=== PATIENT | female | born 1935 | race Caucasian/White ===

== ENCOUNTER 2016-09-28 10:50 | Emergency (ER) | payer MEDICARE ==
[~2016-09-28] VITALS: Ht 149.9 cm; Wt 75.0 kg
[~2016-09-28 10:50] MED LIST: ASPI81 PO; CARV3.125 PO; ISOS5 PO; LORT5TAB PO; OYST500T77 PO; PRIL10CA PO; TAB-TAB PO; TRAZ50TA78 PO
[2016-09-28 10:52] VITALS: BP 137/84; PULSE 87; RESP 17; TEMP 98.2; O2SAT 96
[2016-09-28] MEDS ORDERED: ASPI1TAB69 PO (11:16)
[2016-09-28] MEDS ORDERED: ISOS10TA PO (11:16)
[2016-09-28] MEDS ORDERED: SIMV40TA PO (11:16)
[2016-09-28] MEDS ORDERED: CARV3.125 PO (11:16)
--- NOTE | 2016-09-28 11:32 | PD ---
HPI Chief Complaint: Edema Time Seen by Provider: 11:32 Travel History International Travel<30 days: No Contact w/Intl Traveler<30days: No Traveled to known affect area: No History of Present Illness HPI 80-year-old female with history of HLD, HTN, CAD status post stenting presents to the ED for evaluation of 3 day history of edema in bilateral legs. She also states that she has experienced several episodes of feeling "not right". She describes this as dizziness and weakness. Also complains of low back pain, onset a few days after exercising as well as decreased urinary stream. Denies headache, fever, chills, chest pain, cough, palpitations, numbness, tingling, facial droop, difficulties with word finding, limitations to range of motion. Denies abdominal pain, nausea, vomiting, dysuria, hematuria, incontinence, saddle anesthesia, changes in bowel habits. PFSH Past Medical History Arthritis: Yes Asthma: No Blood Disorders: No Heart Rhythm Problems: No Cancer: Yes (skin) Cardiovascular Problems: Yes (STENTS X2) High Cholesterol: Yes Chest Pain: No Congestive Heart Failure: No COPD: No Coronary Artery Disease: Yes Diminished Hearing: No Endocrine: No Glaucoma: Yes Genitourinary: No Hypertension: Yes Immune Disorder: No Musculoskeletal: Yes Neurologic: No Psychiatric: No Reproductive: No Respiratory: Yes Myocardial Infarction: No Sleep Apnea: No Tetanus Vaccination: Unknown ?: Not Past Surgical History Abdominal Surgery: Yes (HERNIA) AICD: No Arteriovenous Shunt: No Body Medical Devices: CARDIAC STENT Cardiac Surgery: Yes (CARDIAC CATH STENT) Coronary Stent: Yes Ear Surgery: No Endocrine Surgery: No Eye Surgery: No Genitourinary Surgery: No Gynecologic Surgery: No Insulin Pump: No Joint Replacement: Yes (bilat ) Oral Surgery: No Pacemaker: No Thoracic Surgery: No Social History Alcohol Use: No Tobacco Use: No Substance Use: No Allergies-Medications (Allergen,Severity, Reaction): Coded Allergies: Bacitracin (Verified Allergy, Severe, REDNESS, 09/28/16) Reported Meds & Prescriptions Reported Meds & Active Scripts Active Macrobid (Nitrofurantoin Monoh/Nitrofur Macro) 100 Mg Cap 100 Mg PO BID 5 Days Reported Coreg (Carvedilol) 3.125 Mg Tab 3.125 Mg PO DAILY Simvastatin 40 Mg Tab 40 Mg PO HS Isosorbide Dinitrate 10 Mg Tab 5 Mg PO BID Aspirin 81 Mg Tabdr 81 Mg PO DAILY Review of Systems Except as stated in HPI: all other systems reviewed are Neg Physical Exam Narrative GENERAL: Well-nourished, well-developed elderly white female in no acute distress. SKIN: Warm and dry. HEAD: Normocephalic. EYES: No scleral icterus. No injection or drainage. PERRLA. EOMI. NECK: Supple, trachea midline. No JVD or lymphadenopathy. CARDIOVASCULAR: Regular rate and rhythm without murmurs, gallops, or rubs. 2+ DP and radial pulses bilaterally. RESPIRATORY: Breath sounds clear and equal bilaterally. No accessory muscle use. GASTROINTESTINAL: Abdomen soft, non-tender, nondistended. Active bowel sounds. MUSCULOSKELETAL: No cyanosis. 2+ pitting edema BLE. Patient retains full, active, painless range of motion of the lower extremities. Homans sign negative bilaterally. NEUROLOGICAL: Awake and alert. Cranial nerves II through XII intact. Motor and sensory grossly within normal limits. Five out of 5 muscle strength in all muscle groups. Normal speech. BACK: Nontender without obvious deformity. No CVA tenderness. No midline tenderness. No tenderness to palpation of the lumbar musculature. Straight leg raise negative bilaterally. Data Data Last Documented VS Vital Signs Date Time Temp Pulse Resp B/P Pulse Ox O2 Delivery O2 Flow Rate FiO2 09/28/16 14:01 74 20 130/69 99 09/28/16 10:52 98.2 Orders Complete Blood Count With Diff (09/28/16 11:45) Comprehensive Metabolic Panel (09/28/16 11:45) B-Type Natriuretic Peptide (09/28/16 11:45) Act Partial Throm Time (Ptt) (09/28/16 11:45) Prothrombin Time / Inr (Pt) (09/28/16 11:45) Ckmb (Isoenzyme) Profile (09/28/16 11:45) Troponin I (09/28/16 11:45) Urinalysis - C+S If Indicated (09/28/16 11:45) Iv Access Insert/Monitor (09/28/16 11:45) Electrocardiogram (09/28/16 11:45) Chest, Single Ap (09/28/16 11:45) Sodium Chloride 0.9% Flush (Ns Flush) (09/28/16 11:45) Urine Culture (09/28/16 13:00) Labs Laboratory Tests Test 09/28/16 09/28/16 12:10 13:00 White Blood Count 11.8 TH/MM3 Red Blood Count 3.98 MIL/MM3 Hemoglobin 11.9 GM/DL Hematocrit 35.3 % Mean Corpuscular Volume 88.7 FL Mean Corpuscular Hemoglobin 30.0 PG Mean Corpuscular Hemoglobin 33.8 % Concent Red Cell Distribution Width 14.7 % Platelet Count 197 TH/MM3 Mean Platelet Volume 7.3 FL Neutrophils (%) (Auto) 62.0 % Lymphocytes (%) (Auto) 27.5 % Monocytes (%) (Auto) 8.3 % Eosinophils (%) (Auto) 1.7 % Basophils (%) (Auto) 0.5 % Neutrophils # (Auto) 7.3 TH/MM3 Lymphocytes # (Auto) 3.2 TH/MM3 Monocytes # (Auto) 1.0 TH/MM3 Eosinophils # (Auto) 0.2 TH/MM3 Basophils # (Auto) 0.1 TH/MM3 CBC Comment DIFF FINAL Differential Comment Prothrombin Time 11.7 SEC Prothromb Time International 1.1 RATIO Ratio Activated Partial 23.5 SEC Thromboplast Time Sodium Level 136 MEQ/L Potassium Level 4.2 MEQ/L Chloride Level 102 MEQ/L Carbon Dioxide Level 25.9 MEQ/L Anion Gap 8 MEQ/L Blood Urea Nitrogen 14 MG/DL Creatinine 0.80 MG/DL Estimat Glomerular Filtration 69 ML/MIN Rate Random Glucose 100 MG/DL Calcium Level 8.7 MG/DL Total Bilirubin 0.8 MG/DL Aspartate Amino Transf 24 U/L (AST/SGOT) Alanine Aminotransferase 46 U/L (ALT/SGPT) Alkaline Phosphatase 72 U/L Total Creatine Kinase 80 U/L Troponin I LESS THAN 0.02 NG/ML B-Type Natriuretic Peptide 52 PG/ML Total Protein 7.2 GM/DL Albumin 3.8 GM/DL Urine Color YELLOW Urine Turbidity HAZY Urine pH 5.0 Urine Specific Rector 1.020 Urine Protein NEG mg/dL Urine Glucose (UA) NEG mg/dL Urine Ketones NEG mg/dL Urine Occult Blood NEG Urine Nitrite NEG Urine Bilirubin NEG Urine Urobilinogen LESS THAN 2.0 MG/DL Urine Leukocyte Esterase LARGE Urine RBC 4 /hpf Urine WBC 90 /hpf Urine Squamous Epithelial 1 /hpf Cells Urine Mucus FEW /lpf Microscopic Urinalysis Comment CULTURE INDICATED MDM Medical Decision Making Medical Screen Exam Complete: Yes Emergency Medical Condition: Yes Medical Record Reviewed: Yes Interpretation(s) EKG rate 76, sinus rhythm. MD interval 183, QRS 80 ms, QTC 409 ms. Normal axis. No ischemic changes. Reviewed by Dr. Avitia. Differential Diagnosis Electrolyte abnormality versus ARF versus CHF versus dependent edema versus anemia versus UTI versus other Narrative Course 80-year-old female with history of HLD, HTN, CAD status post stenting presents to the ED for evaluation of 3 day history of edema in bilateral legs, low back pain, decreased urinary stream. And several episodes of momentary dizziness and weakness. Lasting less than 10 seconds, resolving spontaneously. Back pain onset after starting new exercise regimen. Denies headache, fever, chills , chest pain, palpitations, numbness, tingling, facial droop, difficulties with word finding, limitations to range of motion, abdominal pain, nausea, vomiting, dysuria, hematuria, incontinence, saddle anesthesia, changes in bowel habits. Vitals reviewed. Physical exam reveals a nontoxic-appearing white female in no acute distress. Chest is clear to auscultation bilaterally. Abdomen benign. No CVA tenderness. No midline tenderness of the back. 5/5 strength in bilateral lower extremities. No focal neural deficits. IV was established. CBC: WBC 11.8. Hemoglobin 11.9. CMP: Unremarkable INR: 1.1 EKG: Rate 76, sinus rhythm, normal intervals, normal axis, no ischemic changes. Cardiac enzymes: Negative Chest x-ray: No acute disease per radiology read. BNP: 52 UA: Hazy, large leukocyte esterase, 90 WBCs, culture pending. I discussed the patient, workup and plan with Dr. Hicks who agrees. This is urinary tract infection. Patient was prescribed Macrobid twice a day 5 days. I suspect the edema is dependent. When I discussed this with the patient and her friend didn't recall an episode of playing cards for multiple hours with their legs dangling from stools. Patient was encouraged to wear compression stockings, elevate the legs. She is instructed to follow-up with her primary care provider should her symptoms worsen or fail to resolve. She indicated understanding of these instructions, is amenable to plan of care. She is stable and discharged home. Diagnosis Primary Impression: Urinary tract infection Qualified Code: N39.0 - Urinary tract infection without hematuria, site unspecified Additional Impression: Bilateral lower extremity edema Referrals: Primary Care Physician Patient Instructions: General Instructions, Leg Edema (ED), Urinary Tract Infection in Women (ED) Additional Instructions: Rest, hydrate. Take all antibiotics as prescribed, even if your symptoms resolve. Compression stockings as discussed. Follow up with your primary care provider as discussed. Return to the ED for any urgent or emergent medical condition. Med/Other Pt SpecificInfo: Prescription(s) given Scripts Nitrofurantoin Monohydrate Macrocrystals (Macrobid)100 Mg [id number] Mg PO BID 5 Days Ref 0 Prov:Thor Hicks MD 09/28/16 Disposition: 01 DISCHARGE HOME Condition: Stable Trini Miranda Sep 28, 2016 11:32
[2016-09-28] MEDS ORDERED: SODIUM CHLORIDE 0.9% FLUSH 5 ML FLUSH IVF PRN (11:45)
[2016-09-28 12:21] LABS: AUTOMATED NEUTROPHIL # 7.3 TH/MM3 (1.8-7.7); BASOPHIL # 0.1 TH/MM3 (0-0.2); BASOPHIL % 0.5 % (0.0-2.0); EOSINOPHIL # 0.2 TH/MM3 (0-0.4); EOSINOPHIL % 1.7 % (0.0-4.0); HEMATOCRIT 35.3 % (35.0-46.0); HEMO FLAGS DIFF FINAL; LYMPH % 27.5 % (9.0-44.0); LYMPHOCYTE # 3.2 TH/MM3 (1.0-4.8); MEAN CELL VOLUME 88.7 FL (80.0-100.0); MEAN CORPUSCULAR HGB CONC 33.8 % (32.0-36.0); MONO % 8.3 % (0.0-8.0); PLATELET COUNT 197 TH/MM3 (150-450); RED BLOOD COUNT 3.98 MIL/MM3 (4.00-5.30); RED CELL DISTRIBUTION WIDTH 14.7 % (11.6-17.2); WHITE BLOOD COUNT 11.8 TH/MM3 (4.0-11.0)
[2016-09-28 12:27] LABS: APTT (PATIENT) 23.5 SEC (24.3-30.1); INTERNATIONAL NORMALIZED RATIO 1.1 RATIO; PROTHROMBIN TIME - PATIENT 11.7 SEC (9.8-11.6)
[2016-09-28 12:37] LABS: ANION GAP 8 MEQ/L (5-15); AST (GOT) 24 U/L (15-37); BICARBONATE 25.9 MEQ/L (21.0-32.0); BLOOD UREA NITROGEN 14 MG/DL (7-18); CHLORIDE 102 MEQ/L (98-107); GLOMERULAR FILTRATION RATE 69 ML/MIN (>89); POTASSIUM 4.2 MEQ/L (3.5-5.1); SODIUM (NA) 136 MEQ/L (136-145)
--- NOTE | 2016-09-28 12:37 | RADRPT ---
EXAM DATE/TIME: 09/28/2016 12:02 [facility] COMPARISON: No previous studies available for comparison. INDICATIONS : Short of breath, cough, palpitations MEDICAL HISTORY : None. SURGICAL HISTORY : None. ENCOUNTER: Initial ACUITY: 1 day PAIN SCORE: 0/10 LOCATION: Bilateral chest FINDINGS: A single view of the chest demonstrates the lungs to be symmetrically aerated without evidence of mas s, infiltrate or effusion. The cardiomediastinal contours are unremarkable. Osseous structures are intact. CONCLUSION: No acute disease. Tim Denton MD FACR on September 28, 2016 at 12:36 Board Certified Radiologist. This report was verified electronically.
[2016-09-28 12:42] LABS: ALKALINE PHOSPHATASE 72 U/L (45-117); ALT (GPT) 46 U/L (10-53); TOTAL BILIRUBIN ADULT 0.8 MG/DL (0.2-1.0)
[2016-09-28 12:45] LABS: CREATINE KINASE 80 U/L (26-192)
[2016-09-28 13:36] LABS: BLOOD, URINE NEG (NEG); COMMENT (UR) CULTURE INDICATED; CULTURE IF INDICATED CULTURE INDICATED; GLUCOSE,URINE NEG (NEG); KETONE, URINE NEG (NEG); MUCUS URINE FEW /lpf (OCC); NITRITE,URINE NEG (NEG); SQUAMOUS EPITHELIAL CELL URINE 1 /hpf (0-5); URINE COLOR YELLOW (YELLW/STRAW)
[2016-09-28 14:01] VITALS: BP 130/69
[2016-09-28] MEDS ORDERED: MACR100C2 PO (14:01)
--- NOTE | 2016-10-01 23:48 | EKG ---
Date Performed: 09/28/2016 Time Performed: 12:20:27 PTAGE: 80 years EKG: Sinus rhythm NORMAL ECG PREVIOUS TRACING : 12/04/2006 11.03 Compared to the previous tracing, rate has increased DOCTOR: Roel Leone Interpretating Date/Time 10/01/2016 23:46:22
== END 2016-09-28 14:16 | disposition home or self-care (01) ==
LOC: NETRI 10:50
DX: N39.0 Urinary tract infection, site not specified (principal); R60.0 Localized edema; I25.10 Atherosclerotic heart disease of native coronary artery without angina pectoris; Z95.5 Presence of coronary angioplasty implant and graft; I10 Essential (primary) hypertension; E78.00 Pure hypercholesterolemia, unspecified; B96.89 Other specified bacterial agents as the cause of diseases classified elsewhere
CPT/HCPCS: 71010; 80053; 81001; 82550; 83880; 84484; 85025; 85610; 85730; 87086; 93005

== ENCOUNTER 2016-10-15 11:48 | Inpatient (IN) | payer MEDICARE ==
[~2016-10-15] VITALS: Ht 149.9 cm; Wt 79.5 kg
[~2016-10-15 11:48] MED LIST changes: +ASPI1TAB69 PO; -ASPI81 PO; +ISOS10TA PO; -ISOS5 PO; -LORT5TAB PO; +MACR100C2 PO; -OYST500T77 PO; -PRIL10CA PO; +SIMV40TA PO; -TAB-TAB PO; -TRAZ50TA78 PO
[2016-10-15 11:53] VITALS: BP 153/67; PULSE 80; RESP 24; TEMP 97.9; O2SAT 93
--- NOTE | 2016-10-15 14:51 | PD ---
HPI Chief Complaint: Edema Time Seen by Provider: 14:51 Travel History International Travel<30 days: No Contact w/Intl Traveler<30days: No Traveled to known affect area: No History of Present Illness HPI 80-year-old female with a history of hyperlipidemia, hypertension, CAD with stents 2 presents to the emergency department for evaluation of lower extremity swelling. Patient states that for the past 2 weeks she's had worsening lower extremity swelling. States that over the past 3 days she's had shortness of breath on exertion. States that she is also having pain in her lower legs specifically in the left lower leg. She does admit to history of DVT in the left leg several years ago, is not on any anticoagulation. She denies any history of heart failure, is not on any diuretics. She denies any fever, chills, nausea, vomiting, chest pain, abdominal pain, cough or cold symptoms. She has had a history of venous reflux and had surgery on the right leg 2 years ago. No other complaints. PFSH Past Medical History Arthritis: Yes Asthma: No Blood Disorders: No Heart Rhythm Problems: No Cancer: Yes (skin) Cardiovascular Problems: Yes (STENTS X2) High Cholesterol: Yes Chest Pain: No Congestive Heart Failure: No COPD: No Coronary Artery Disease: Yes Diminished Hearing: No Endocrine: No Glaucoma: Yes Genitourinary: No Hypertension: Yes Immune Disorder: No Musculoskeletal: Yes Neurologic: No Psychiatric: No Reproductive: No Respiratory: Yes Myocardial Infarction: No Sleep Apnea: No Tetanus Vaccination: Unknown ?: Not Past Surgical History Abdominal Surgery: Yes (HERNIA) AICD: No Arteriovenous Shunt: No Body Medical Devices: CARDIAC STENT Cardiac Surgery: Yes (CARDIAC CATH STENT) Coronary Stent: Yes Ear Surgery: No Endocrine Surgery: No Eye Surgery: No Genitourinary Surgery: No Gynecologic Surgery: No Insulin Pump: No Joint Replacement: Yes (bilat ) Oral Surgery: No Pacemaker: No Thoracic Surgery: No Other Surgery: Yes Social History Alcohol Use: No Tobacco Use: No Substance Use: No Allergies-Medications (Allergen,Severity, Reaction): Coded Allergies: Bacitracin (Verified Allergy, Severe, REDNESS, 10/15/16) Reported Meds & Prescriptions Reported Meds & Active Scripts Active Reported Mupirocin Topical (Mupirocin) 2 % Oint 1 Applic TOPICAL BID Bactrim DS (Sulfamethoxazole-Trimethoprim) 800-160 Mg Tab 1 Tab PO BID Coreg (Carvedilol) 3.125 Mg Tab 3.125 Mg PO DAILY Simvastatin 40 Mg Tab 40 Mg PO HS Isosorbide Dinitrate 10 Mg Tab 5 Mg PO BID Aspirin 81 Mg Tabdr 81 Mg PO DAILY Review of Systems Except as stated in HPI: all other systems reviewed are Neg Physical Exam Narrative GENERAL: Well-nourished and well-developed pleasant patient in no acute distress who is nontoxic appearing. SKIN: Warm and dry. HEAD: Normocephalic and atraumatic. EYES: No injection, drainage, or hyphema noted. PERRLA. EOMI. ENT: No nasal drainage noted. Oropharynx is clear. NECK: Supple and the trachea is midline. CARDIOVASCULAR: Regular rate and rhythm. RESPIRATORY: Breath sounds are equal bilaterally with no accessory muscle use, wheezing, rhonchi, or crackles. GASTROINTESTINAL: Abdomen is soft, non-tender, and nondistended. MUSCULOSKELETAL: Bilateral lower extremity pitting edema 2+, worse in the left leg. Tenderness to palpation of left posterior calf. No obvious deformities, cyanosis, or ecchymosis is present throughout the upper and lower extremities. Patient has full range of motion without any signs of neurovascular compromise. NEUROLOGICAL: Awake, alert, and oriented. Normal speech and gait. Cranial nerves are grossly intact. Data Data Last Documented VS Vital Signs Date Time Temp Pulse Resp B/P Pulse Ox O2 Delivery O2 Flow Rate FiO2 10/15/16 16:33 80 20 99 Room Air 10/15/16 16:30 142/74 10/15/16 11:53 97.9 Orders Complete Blood Count With Diff (10/15/16 14:50) Comprehensive Metabolic Panel (10/15/16 14:50) B-Type Natriuretic Peptide (10/15/16 14:50) Act Partial Throm Time (Ptt) (10/15/16 14:50) Prothrombin Time / Inr (Pt) (10/15/16 14:50) Troponin I (10/15/16 14:50) Chest, Single Ap (10/15/16 14:50) Us Leg Venous Doppler Bilat (10/15/16 ) Ct Pulmonary Angiogram (10/15/16 16:43) Furosemide Inj (Lasix Inj) (10/15/16 16:45) Admit Order (Ed Use Only) (10/15/16 17:18) Labs Laboratory Tests Test 10/15/16 15:00 White Blood Count 12.1 TH/MM3 Red Blood Count 3.70 MIL/MM3 Hemoglobin 11.2 GM/DL Hematocrit 32.7 % Mean Corpuscular Volume 88.4 FL Mean Corpuscular Hemoglobin 30.2 PG Mean Corpuscular Hemoglobin 34.2 % Concent Red Cell Distribution Width 15.1 % Platelet Count 208 TH/MM3 Mean Platelet Volume 7.1 FL Neutrophils (%) (Auto) 68.3 % Lymphocytes (%) (Auto) 19.1 % Monocytes (%) (Auto) 10.4 % Eosinophils (%) (Auto) 1.6 % Basophils (%) (Auto) 0.6 % Neutrophils # (Auto) 8.2 TH/MM3 Lymphocytes # (Auto) 2.3 TH/MM3 Monocytes # (Auto) 1.3 TH/MM3 Eosinophils # (Auto) 0.2 TH/MM3 Basophils # (Auto) 0.1 TH/MM3 CBC Comment DIFF FINAL Differential Comment Prothrombin Time 13.3 SEC Prothromb Time International 1.2 RATIO Ratio Activated Partial 25.6 SEC Thromboplast Time Sodium Level 135 MEQ/L Potassium Level 4.1 MEQ/L Chloride Level 101 MEQ/L Carbon Dioxide Level 24.2 MEQ/L Anion Gap 10 MEQ/L Blood Urea Nitrogen 17 MG/DL Creatinine 0.80 MG/DL Estimat Glomerular Filtration 69 ML/MIN Rate Random Glucose 98 MG/DL Calcium Level 9.2 MG/DL Total Bilirubin 1.3 MG/DL Aspartate Amino Transf 29 U/L (AST/SGOT) Alanine Aminotransferase 32 U/L (ALT/SGPT) Alkaline Phosphatase 105 U/L Troponin I LESS THAN 0.02 NG/ML B-Type Natriuretic Peptide 62 PG/ML Total Protein 6.9 GM/DL Albumin 3.7 GM/DL [facility] Medical Decision Making Medical Screen Exam Complete: Yes Emergency Medical Condition: Yes Differential Diagnosis Dependent edema versus CHF exacerbation versus DVT Narrative Course 80-year-old female presents to the emergency department for evaluation of lower extremity edema with shortness of breath on exertion. Patient is afebrile. Her initial oxygen saturation is a little low at 93% on room air. The patient is in no acute distress and lungs are clear to auscultation. She does have edema to her lower extremities but this has been going on for a while, she is reporting that it acutely worsened over the past 2 weeks. Will do lab work to rule out CHF exacerbation. Ultrasound imaging is been ordered to rule out DVT. CBC shows a slightly elevated white blood cell count of 12.1. CMP is unremarkable. Troponin is less than 0.02. BNP is 62. Chest x-ray is negative for any Abnormalities. Initial laboratory and imaging studies have been ordered and the patient will be evaluated by another provider when a medical bed becomes available. The triage nurse is aware of the plan. The proposed plan of evaluation and treatment was discussed with the patient who verbalizes an understanding and agrees to proceed. Jaqueline Arenas Oct 15, 2016 14:51
[2016-10-15 15:17] LABS: AUTOMATED NEUTROPHIL # 8.2 TH/MM3 (1.8-7.7); BASOPHIL # 0.1 TH/MM3 (0-0.2); BASOPHIL % 0.6 % (0.0-2.0); EOSINOPHIL # 0.2 TH/MM3 (0-0.4); EOSINOPHIL % 1.6 % (0.0-4.0); HEMATOCRIT 32.7 % (35.0-46.0); HEMO FLAGS DIFF FINAL; LYMPH % 19.1 % (9.0-44.0); LYMPHOCYTE # 2.3 TH/MM3 (1.0-4.8); MEAN CELL VOLUME 88.4 FL (80.0-100.0); MEAN CORPUSCULAR HEMOGLOBIN 30.2 PG (27.0-34.0); MEAN CORPUSCULAR HGB CONC 34.2 % (32.0-36.0); MONO % 10.4 % (0.0-8.0); NEUT % 68.3 % (16.0-70.0); PLATELET COUNT 208 TH/MM3 (150-450); RED CELL DISTRIBUTION WIDTH 15.1 % (11.6-17.2); WHITE BLOOD COUNT 12.1 TH/MM3 (4.0-11.0)
[2016-10-15 15:35] LABS: ALT (GPT) 32 U/L (10-53); ANION GAP 10 MEQ/L (5-15); APTT (PATIENT) 25.6 SEC (24.3-30.1); AST (GOT) 29 U/L (15-37); BICARBONATE 24.2 MEQ/L (21.0-32.0); BLOOD UREA NITROGEN 17 MG/DL (7-18); CHLORIDE 101 MEQ/L (98-107); GLOMERULAR FILTRATION RATE 69 ML/MIN (>89); INTERNATIONAL NORMALIZED RATIO 1.2 RATIO; POTASSIUM 4.1 MEQ/L (3.5-5.1); PROTHROMBIN TIME - PATIENT 13.3 SEC (9.8-11.6); SODIUM (NA) 135 MEQ/L (136-145)
--- NOTE | 2016-10-15 15:38 | RADRPT ---
EXAM DATE/TIME: 10/15/2016 15:12 [facility] COMPARISON: CHEST SINGLE AP, September 28, 2016, 12:02. INDICATIONS : Short of breath, swollen lower legs MEDICAL HISTORY : None. SURGICAL HISTORY : Coronary artery stent. ENCOUNTER: Initial ACUITY: 1 day PAIN SCORE: 0/10 LOCATION: Bilateral chest FINDINGS: A single view of the chest demonstrates the lungs to be symmetrically aerated without evidence of mas s, infiltrate or effusion. The cardiomediastinal contours are unremarkable. Osseous structures are intact. CONCLUSION: No acute disease. Tim Denton MD FACR on October 15, 2016 at 15:36 Board Certified Radiologist. This report was verified electronically.
[2016-10-15 15:39] LABS: ALKALINE PHOSPHATASE 105 U/L (45-117); TOTAL BILIRUBIN ADULT 1.3 MG/DL (0.2-1.0)
--- NOTE | 2016-10-15 16:20 | RADRPT ---
EXAM DATE/TIME: 10/15/2016 15:35 [facility] COMPARISON: No previous studies available for comparison. INDICATIONS : Bilateral leg swelling. MEDICAL HISTORY : Hypercholesterolemia. Hypertension. Glaucoma. Coronary artery disease. Arthritis. Skin cancer. SURGICAL HISTORY : Coronary artery stent. Hernia repair. Bilateral knee replacements. ENCOUNTER: Initial ACUITY: 2 weeks PAIN SCORE: 7/10 LOCATION: Bilateral legs. TECHNIQUE: Venous ultrasound of the left and right leg was performed from the inguinal ligament to the proximal calf. Real-time, color Doppler and spectral tracing, compression and augmentation techniques were us ed. FINDINGS: RIGHT LEG: There is normal compressibility of the deep venous system from the inguinal region to the proximal ca lf. No echogenic clot is seen in the lumen of the common femoral, femoral, popliteal, and posterior tibial veins. There is a normal response of the venous system to proximal and distal augmentation an d respiration. LEFT LEG: Occlusive deep venous thrombosis is noted from the left iliac vein to the calf veins. CONCLUSION: 1. Occlusive deep venous thrombosis of the left lower extremity from the iliac vein to the calf veins . 2. No deep venous thrombosis within the right lower extremity. Warren Chavez MD on October 15, 2016 at 16:16 Board Certified Radiologist. This report was verified electronically.
[2016-10-15 16:30] VITALS: BP 142/74; PULSE 91; RESP 20; O2SAT 95
[2016-10-15] MEDS ORDERED: MUPI2OIN TOPICAL (16:45)
[2016-10-15] MEDS ORDERED: FUROSEMIDE 40 MG/4 ML VIAL IV PUSH ONE (16:45)
[2016-10-15] MEDS ORDERED: BACT800T5 PO (16:45)
--- NOTE | 2016-10-15 16:55 | PD ---
Physical Exam Date Seen by Provider: Oct 15, 2016 Time Seen by Provider: 16:47 Narrative 80-year-old female coming in with bilateral lower extremity edema left greater than right with pain in the left leg positive extensive DVT by ultrasound on the left from the lower extremity. Cardiac enzymes are currently negative. ProBNP is not elevated. Chest x-ray shows no acute process per radiologist. Patient was seen initially in triage by Anais Arenas PA-C. Patient is transferred to [place] [id number] for workup and admission. Patient has history of DVT in the distant past where she took warfarin for 6 months and then discontinued. She does have a filter placed due to previous DVT. Patient denies chest pain but does have increased shortness of breath with exertion. Data Data Last Documented VS Vital Signs Date Time Temp Pulse Resp B/P Pulse Ox O2 Delivery O2 Flow Rate FiO2 10/15/16 16:33 80 20 99 Room Air 10/15/16 11:53 97.9 153/67 Orders Complete Blood Count With Diff (10/15/16 14:50) Comprehensive Metabolic Panel (10/15/16 14:50) B-Type Natriuretic Peptide (10/15/16 14:50) Act Partial Throm Time (Ptt) (10/15/16 14:50) Prothrombin Time / Inr (Pt) (10/15/16 14:50) Troponin I (10/15/16 14:50) Chest, Single Ap (10/15/16 14:50) Us Leg Venous Doppler Bilat (10/15/16 ) Ct Pulmonary Angiogram (10/15/16 16:43) Furosemide Inj (Lasix Inj) (10/15/16 16:45) Admit Order (Ed Use Only) (10/15/16 17:18) Labs Laboratory Tests Test 10/15/16 15:00 White Blood Count 12.1 TH/MM3 Red Blood Count 3.70 MIL/MM3 Hemoglobin 11.2 GM/DL Hematocrit 32.7 % Mean Corpuscular Volume 88.4 FL Mean Corpuscular Hemoglobin 30.2 PG Mean Corpuscular Hemoglobin 34.2 % Concent Red Cell Distribution Width 15.1 % Platelet Count 208 TH/MM3 Mean Platelet Volume 7.1 FL Neutrophils (%) (Auto) 68.3 % Lymphocytes (%) (Auto) 19.1 % Monocytes (%) (Auto) 10.4 % Eosinophils (%) (Auto) 1.6 % Basophils (%) (Auto) 0.6 % Neutrophils # (Auto) 8.2 TH/MM3 Lymphocytes # (Auto) 2.3 TH/MM3 Monocytes # (Auto) 1.3 TH/MM3 Eosinophils # (Auto) 0.2 TH/MM3 Basophils # (Auto) 0.1 TH/MM3 CBC Comment DIFF FINAL Differential Comment Prothrombin Time 13.3 SEC Prothromb Time International 1.2 RATIO Ratio Activated Partial 25.6 SEC Thromboplast Time Sodium Level 135 MEQ/L Potassium Level 4.1 MEQ/L Chloride Level 101 MEQ/L Carbon Dioxide Level 24.2 MEQ/L Anion Gap 10 MEQ/L Blood Urea Nitrogen 17 MG/DL Creatinine 0.80 MG/DL Estimat Glomerular Filtration 69 ML/MIN Rate Random Glucose 98 MG/DL Calcium Level 9.2 MG/DL Total Bilirubin 1.3 MG/DL Aspartate Amino Transf 29 U/L (AST/SGOT) Alanine Aminotransferase 32 U/L (ALT/SGPT) Alkaline Phosphatase 105 U/L Troponin I LESS THAN 0.02 NG/ML B-Type Natriuretic Peptide 62 PG/ML Total Protein 6.9 GM/DL Albumin 3.7 GM/DL [facility] Medical Record Reviewed: Yes Supervised Visit with MERVIN: Yes Differential Diagnosis Left lower extremity DVT. Pedal edema. Shortness of breath with exertion. Possible PE. Narrative Course Previous no and labs reviewed. Added CT angiogram to rule out pulmonary embolism. Rectal Guiac is performed and is NEGATIVE. Call was placed to the [facility] for admission. Call returned by Dr. Rowe, and patient was discussed. He agrees the patient should be admitted. Admission orders placed. CTA is negative. Diagnosis Primary Impression: Left leg DVT Qualified Code: I82.4Z2 - Acute deep vein thrombosis (DVT) of distal vein of left lower extremity Additional Impressions: SOB (shortness of breath) on exertion Bilateral lower extremity edema Admitting Information Admitting Physician Requests: Admit Jose Malone Oct 15, 2016 16:55
[2016-10-15] MEDS ORDERED: IOHEXOL 350 MG/ML 10 ML VIAL (for RAD DIAG) IV ONE (17:24)
--- NOTE | 2016-10-15 17:26 | PD ---
Data Data Last Documented VS Vital Signs Date Time Temp Pulse Resp B/P Pulse Ox O2 Delivery O2 Flow Rate FiO2 10/15/16 16:33 80 20 99 Room Air 10/15/16 11:53 97.9 153/67 Orders Complete Blood Count With Diff (10/15/16 14:50) Comprehensive Metabolic Panel (10/15/16 14:50) B-Type Natriuretic Peptide (10/15/16 14:50) Act Partial Throm Time (Ptt) (10/15/16 14:50) Prothrombin Time / Inr (Pt) (10/15/16 14:50) Troponin I (10/15/16 14:50) Chest, Single Ap (10/15/16 14:50) Us Leg Venous Doppler Bilat (10/15/16 ) Ct Pulmonary Angiogram (10/15/16 16:43) Furosemide Inj (Lasix Inj) (10/15/16 16:45) Admit Order (Ed Use Only) (10/15/16 17:18) Admit To Inpatient (10/15/16 ) Vital Signs (Adult) Q4H (10/15/16 17:18) 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 .CONTINUOUS (10/15/16 17:18) Diet Heart Healthy (10/15/16 Dinner) Sodium Chloride 0.9% Flush (Ns Flush) (10/15/16 17:30) Sodium Chloride 0.9% Flush (Ns Flush) (10/15/16 21:00) Basic Metabolic Panel (Bmp) (10/16/16 06:00) Complete Blood Count With Diff (10/16/16 06:00) Creatine Kinase (Cpk) (10/15/16 17:18) Creatine Kinase (Cpk) (10/15/16 23:18) Troponin I (10/15/16 17:18) Troponin I (10/15/16 23:18) Naloxone Inj (Narcan Inj) (10/15/16 17:30) Inpatient Certification (10/15/16 ) Labs Laboratory Tests Test 10/15/16 15:00 White Blood Count 12.1 TH/MM3 Red Blood Count 3.70 MIL/MM3 Hemoglobin 11.2 GM/DL Hematocrit 32.7 % Mean Corpuscular Volume 88.4 FL Mean Corpuscular Hemoglobin 30.2 PG Mean Corpuscular Hemoglobin 34.2 % Concent Red Cell Distribution Width 15.1 % Platelet Count 208 TH/MM3 Mean Platelet Volume 7.1 FL Neutrophils (%) (Auto) 68.3 % Lymphocytes (%) (Auto) 19.1 % Monocytes (%) (Auto) 10.4 % Eosinophils (%) (Auto) 1.6 % Basophils (%) (Auto) 0.6 % Neutrophils # (Auto) 8.2 TH/MM3 Lymphocytes # (Auto) 2.3 TH/MM3 Monocytes # (Auto) 1.3 TH/MM3 Eosinophils # (Auto) 0.2 TH/MM3 Basophils # (Auto) 0.1 TH/MM3 CBC Comment DIFF FINAL Differential Comment Prothrombin Time 13.3 SEC Prothromb Time International 1.2 RATIO Ratio Activated Partial 25.6 SEC Thromboplast Time Sodium Level 135 MEQ/L Potassium Level 4.1 MEQ/L Chloride Level 101 MEQ/L Carbon Dioxide Level 24.2 MEQ/L Anion Gap 10 MEQ/L Blood Urea Nitrogen 17 MG/DL Creatinine 0.80 MG/DL Estimat Glomerular Filtration 69 ML/MIN Rate Random Glucose 98 MG/DL Calcium Level 9.2 MG/DL Total Bilirubin 1.3 MG/DL Aspartate Amino Transf 29 U/L (AST/SGOT) Alanine Aminotransferase 32 U/L (ALT/SGPT) Alkaline Phosphatase 105 U/L Troponin I LESS THAN 0.02 NG/ML B-Type Natriuretic Peptide 62 PG/ML Total Protein 6.9 GM/DL Albumin 3.7 GM/DL [facility] Supervised Visit with MERVIN: Yes Narrative Course The history, exam, and medical decision-making in the associated mid-level provider note were completed with my assistance. I reviewed and agree with the findings presented. I attest that I had a [id number] encounter with the patient on the same day, and personally performed and documented my assessment and findings in the medical record. *My assessment and Findings: 80-year-old woman who presents to the emergency department complaining of leg swelling. She does not have extensive DVT. Is bordering on phlegmasia however she appears to have good perfusion at this time. Legs likely cool symmetric with the right. She's had some chronic edema in both legs. She's had previous DVT in the setting of knee replacement. She has an IVC filter in place. She is not on blood thinners now. Patient will be admitted. Yo Martin MD Oct 15, 2016 17:26
[2016-10-15] MEDS ORDERED: NALOXONE HCL 0.4 MG/ML AMP IV PRN (17:30)
[2016-10-15] MEDS ORDERED: SODIUM CHLORIDE 0.9% FLUSH 5 ML FLUSH FLUSH PRN (17:30)
--- NOTE | 2016-10-15 17:44 | RADRPT ---
EXAM DATE/TIME: 10/15/2016 17:05 [place] COMPARISON: No previous studies available for comparison. INDICATIONS : Shortness of breath and bilateral lower extremity edema for two days. IV CONTRAST: 70 cc Omnipaque 350 (iohexol) IV RADIATION DOSE: 22.96 CTDIvol (mGy) MEDICAL HISTORY : Cardiovascular disease. Hypertension. SURGICAL HISTORY : None. ENCOUNTER: Initial ACUITY: 2 days PAIN SCALE: 0/10 LOCATION: Bilateral chest TECHNIQUE: Volumetric scanning of the chest was performed using a pulmonary embolism protocol MIP images were re constructed. Using automated exposure control and adjustment of the mA and/or kV according to patien t size, radiation dose was kept as low as reasonably achievable to obtain optimal diagnostic quality images. FINDINGS: There are no suspicious lung lesions identified. There is no axillary adenopathy. There is no mediastinal adenopathy. There is no evidence for central pulmonary emboli. There is minimal coronary artery calcifications present in the LAD. There is no pericardial effusion . CONCLUSION: 1. There is no evidence for central pulmonary emboli. 2. Coronary artery calcifications. 3. Benign-appearing calcifications in the left breast. 4. There are no suspicious lung lesions. Tim Denton MD FACR on October 15, 2016 at 17:35 Board Certified Radiologist. This report was verified electronically.
[2016-10-15 18:24] VITALS: BP 141/69; PULSE 82; RESP 18; O2SAT 95
--- NOTE | 2016-10-15 18:55 | HHI.HP ---
HPI Service [facility] Primary Care Physician No Primary Care Physician Admission Diagnosis DVT/SOB/EDEMA Diagnoses: (Maryanne Richard) Travel History International Travel<30 Days: No Contact w/Intl Traveler <30 Da: No Traveled to Known Affected Are: No (Maryanne Richard) History of Present Illness This is a pleasant 80-year-old female with past medical history of CAD and stents, hypertension, hyperlipidemia, osteoarthritis, previous DVT to the right leg status post IVC filter. Patient presented to the emergency room complaining of increased bilateral lower extremity swelling left greater than right with pain to the left leg with ambulation. Patient indicates that she has noted increased swelling to both legs for the last couple of weeks, in the last couple days she noted that the left leg was bigger and more tender to the calf area. She had more pain with ambulation. She's also noticed some dyspnea with exertion, no chest pain, no fever, no chills. She does have some chronic venous insufficiency, but her legs have never had any excessive swelling such as this. She does have a history of DVT to the right leg after she had right knee replacement. She was on warfarin for 6 months and had IVC filter placed. Patient indicates that a couple of weeks ago she stayed up playing cards and was sitting for several hours. Denies any malignancy, n recent history of extensive travel. Denies any blood clotting disorders. In the emergency room, patient was evaluated and laboratory workup was completed which was essentially unremarkable. Troponin was negative. BNP was 62. Ultrasound of the left leg showed extensive DVT from the iliac vein to the calf veins. No DVT to the right leg. CT of the chest was negative for pulmonary emboli. Chest x-ray did not reveal any acute findings. Last Impressions CT Angiography 10/15/16 1643 Signed Impressions: Service Date/Time: Saturday, October 15, 2016 17:05 - CONCLUSION: 1. There is no evidence for central pulmonary emboli. 2. Coronary artery calcifications. 3. Benign-appearing calcifications in the left breast. 4. There are no suspicious lung lesions. Tim Denton MD FACR Chest X-Ray 10/15/16 1450 Signed Impressions: Service Date/Time: Saturday, October 15, 2016 15:12 - CONCLUSION: No acute disease. Tim Denton MD FACPaul Lower Extremity Ultrasound 10/15/16 0000 Signed Impressions: Service Date/Time: Saturday, October 15, 2016 15:35 - CONCLUSION: 1. Occlusive deep venous thrombosis of the left lower extremity from the iliac vein to the calf veins. 2. No deep venous thrombosis within the right lower extremity. Warren Chavez MD There is no EKG to evaluate, one has been ordered. Additionally, patient has erythema and was diagnosed with cellulitis by her charge accounts audit clerk. She had a skin biopsy done to right forearm for basal cell and site has become itchy and reddened. She was instructed to start taking Bactrim and apply Mupirocin to the site. Patient is evaluated in the emergency room, she is resting comfortably. Indicates that the last time she saw her marine superintendent Dr. Phan was one year ago. She did have a stress test that was negative. She does not recall a recent echocardiogram. Patient is admitted for further evaluation and treatment. (Maryanne Richard) Review of Systems Constitutional: DENIES: Diaphoretic episodes, Fatigue, Fever, Weight gain, Weight loss, Chills, Dizziness, Change in appetite, Night Sweats Endocrine: DENIES: Abnorml menstrual pattern, Heat/cold intolerance, Polydipsia , Polyuria, Polyphagia Eyes: DENIES: Blurred vision, Diplopia, Eye inflammation, Eye pain, Vision loss , Photosensitivity, Double Vision Ears, nose, mouth, throat: DENIES: Tinnitus, Hearing loss, Vertigo, Nasal discharge, Oral lesions, Throat pain, Hoarseness, Ear Pain, Running Nose, Epistaxis, Sinus Pain, Toothache, Odynophagia Respiratory: DENIES: Apneas, Cough, Snoring, Wheezing, Hemoptysis, Sputum production, Shortness of breath Cardiovascular: COMPLAINS OF: Dyspnea on Exertion, Lower Extremity Edema, DENIES: Chest pain, Palpitations, Syncope, PND, Orthopnea, Claudication Gastrointestinal: DENIES: Abdominal pain, Black stools, Bloody stools, Constipation, Diarrhea, Nausea, Vomiting, Difficulty Swallowing, Anorexia Genitourinary: DENIES: Abnormal vaginal bleeding, Dysmenorrhea, Dyspareunia, Sexual dysfunction, Urinary frequency, Urinary incontinence, Urgency, Hematuria , Dysuria, Nocturia, Vaginal discharge Musculoskeletal: DENIES: Joint pain, Muscle aches, Stiffness, Joint Swelling, Back pain, Neck pain Integumentary: COMPLAINS OF: Rash (right forearm), DENIES: Abnormal pigmentation, Pruritus, Nail changes, Breast masses, Breast skin changes, Nipple discharge Hematologic/lymphatic: COMPLAINS OF: Bruising (legs), DENIES: Lymphadenopathy Immunologic/allergic: DENIES: Eczema, Urticaria Neurologic: DENIES: Abnormal gait, Headache, Localized weakness, Paresthesias, Seizures, Speech Problems, Tremor, Poor Balance Psychiatric: DENIES: Anxiety, Confusion, Mood changes, Depression, Hallucinations, Agitation, Suicidal Ideation, Homicidal Ideation, Delusions Other Venous insufficiency Purpura Right forearm cellulitis, put on Bactrim and bactrobam per charge accounts audit clerk, had skin biopsy one week ago (Maryanne Richard) Past Family Social History Past Medical History Venous insufficiency Obesity Prior history of right DVT 7 years ago after right knee replacement Coronary artery disease, 2 stents in the past Hypertension Hyperlipidemia Stress test December 2015, negative findings-Dr. Phan his marine superintendent Osteoarthritis Basal cell carcinoma Had recent skin biopsy right forearm and back, diagnosed with cellulitis today and put on Bactrim and mupirocin Past Surgical History Bilateral knee replacements IVC filter Hernia repair Right leg vein surgery Cardiac catheter with stents 2 in the past Reported Medications Reported Meds & Active Scripts Active Reported Mupirocin Topical (Mupirocin) 2 % Oint 1 Applic TOPICAL BID Bactrim DS (Sulfamethoxazole-Trimethoprim) 800-160 Mg Tab 1 Tab PO BID Coreg (Carvedilol) 3.125 Mg Tab 3.125 Mg PO DAILY Simvastatin 40 Mg Tab 40 Mg PO HS Isosorbide Dinitrate 10 Mg Tab 5 Mg PO BID Aspirin 81 Mg Tabdr 81 Mg PO DAILY (Maryanne Richard) Allergies: Coded Allergies: Bacitracin (Verified Allergy, Severe, REDNESS, 10/15/16) Active Ordered Medications Inpatient Medications Acetaminophen (Tylenol) 650 mg Q4H PRN PO Temp > 100.4; Start 10/15/16 at 19:15 Aspirin (Ecotrin Ec) 81 mg DAILY PO ; Start 10/16/16 at 09:00 Carvedilol (Coreg) 3.125 mg DAILY PO ; Start 10/16/16 at 09:00; Status UNV Enoxaparin Sodium (Lovenox Inj) 80 mg Q12H SQ ; Start 10/15/16 at 19:00; Status UNV Furosemide (Lasix Inj) 40 mg ONCE ONCE IV PUSH ; Start 10/15/16 at 16:45; Stop 10/15/16 at 16:56; Status DC IV Flush (NS Flush) 2 ml BID FLUSH ; Start 10/15/16 at 21:00 Mupirocin (Bactroban 2% Oint) 1 applic BID TOPICAL ; Start 10/15/16 at 21:00; Status UNV Naloxone HCl (Narcan Inj) 0.4 mg UNSCH PRN IV SEE LABEL COMMENTS; Start at 17:30 Ondansetron HCl (Zofran Inj) 4 mg Q6H PRN IV NAUSEA; Start 10/15/16 at 19:15 Pravastatin Sodium (Pravachol) 80 mg HS PO ; Start 10/15/16 at 21:00 Trimethoprim/ Sulfamethoxazole (Bactrim Ds 800-160 Mg) 1 tab BID PO ; Start 10/15 at 21:00 Family History Mother and father both Father with history hypertension, CAD, CABG Mother with history of stroke Has a sister who is alive and well Social History , has grown children, no alcohol, no substance abuse, no tobacco abuse ( Maryanne Richard) Physical Exam Vital Signs Vital Signs Date Time Temp Pulse Resp B/P Pulse Ox O2 Delivery O2 Flow Rate FiO2 10/15/16 18:24 82 18 141/69 95 Room Air 10/15/16 16:33 80 20 99 Room Air 10/15/16 16:30 91 20 142/74 95 Room Air 10/15/16 11:53 97.9 80 24 153/67 93 Room Air Physical Exam GENERAL: This is a well-nourished, obese patient, in no apparent distress. SKIN: Purpuric lesions noted to lower extremities, skin very fragile, warm and dry. Erythema around biopsy site to right forearm HEAD: Atraumatic. Normocephalic. No temporal or scalp tenderness. EYES: Pupils equal round and reactive. Extraocular motions intact. No scleral icterus. No injection or drainage. ENT: Nose without bleeding, purulent drainage or septal hematoma. Throat without erythema, tonsillar hypertrophy or exudate. Uvula midline. Airway patent. NECK: Trachea midline. No JVD or lymphadenopathy. Supple, nontender, no meningeal signs. CARDIOVASCULAR: Regular rate and rhythm, occasional irregular beats. No murmurs rubs or gallops. RESPIRATORY: Clear to auscultation. Breath sounds equal bilaterally. No wheezes , rales, or rhonchi. GASTROINTESTINAL: Abdomen soft, non-tender, nondistended. No hepato-splenomegaly , or palpable masses. No guarding. MUSCULOSKELETAL: Extremities without clubbing, cyanosis. No joint tenderness, effusion, or edema noted. No calf tenderness. Negative Homans sign bilaterally. Bilateral lower extremity with 2+ pitting edema, left greater than right, positive for left calf tenderness. Pedal pulses 2+ bilaterally. NEUROLOGICAL: Awake and alert. Cranial nerves II through XII intact. Motor and sensory grossly within normal limits. Five out of 5 muscle strength in all muscle groups. Normal speech. Laboratory Laboratory Tests Test 10/15/16 15:00 White Blood Count 12.1 Red Blood Count 3.70 Hemoglobin 11.2 Hematocrit 32.7 Mean Corpuscular Volume 88.4 Mean Corpuscular Hemoglobin 30.2 Mean Corpuscular Hemoglobin 34.2 Concent Red Cell Distribution Width 15.1 Platelet Count 208 Mean Platelet Volume 7.1 Neutrophils (%) (Auto) 68.3 Lymphocytes (%) (Auto) 19.1 Monocytes (%) (Auto) 10.4 Eosinophils (%) (Auto) 1.6 Basophils (%) (Auto) 0.6 Neutrophils # (Auto) 8.2 Lymphocytes # (Auto) 2.3 Monocytes # (Auto) 1.3 Eosinophils # (Auto) 0.2 Basophils # (Auto) 0.1 CBC Comment DIFF FINAL Differential Comment Prothrombin Time 13.3 Prothromb Time International 1.2 Ratio Activated Partial 25.6 Thromboplast Time Sodium Level 135 Potassium Level 4.1 Chloride Level 101 Carbon Dioxide Level 24.2 Anion Gap 10 Blood Urea Nitrogen 17 Creatinine 0.80 Estimat Glomerular Filtration 69 Rate Random Glucose 98 Calcium Level 9.2 Total Bilirubin 1.3 Aspartate Amino Transf 29 (AST/SGOT) Alanine Aminotransferase 32 (ALT/SGPT) Alkaline Phosphatase 105 Troponin I LESS THAN 0.02 B-Type Natriuretic Peptide 62 Total Protein 6.9 Albumin 3.7 (Maryanne Richard) Result Diagram: 10/15/16 1500 10/15/[address] Angiography 10/15/16 1643 Signed Impressions: Service Date/Time: Saturday, October 15, 2016 17:05 - CONCLUSION: 1. There is no evidence for central pulmonary emboli. 2. Coronary artery calcifications. 3. Benign-appearing calcifications in the left breast. 4. There are no suspicious lung lesions. Tim Denton MD FACR Chest X-Ray 10/15/16 1450 Signed Impressions: Service Date/Time: Saturday, October 15, 2016 15:12 - CONCLUSION: No acute disease. Tim Denton MD FACR Lower Extremity Ultrasound 10/15/16 0000 Signed Impressions: Service Date/Time: Saturday, October 15, 2016 15:35 - CONCLUSION: 1. Occlusive deep venous thrombosis of the left lower extremity from the iliac vein to the calf veins. 2. No deep venous thrombosis within the right lower extremity. Warren Chavez MD (Maryanne Richard) Assessment and Plan Problem List: (1) Left leg DVT (2) Bilateral lower extremity edema (3) SOB (shortness of breath) on exertion (4) CAD (coronary artery disease) (5) Hypertension (6) Obesity (7) Hx of deep venous thrombosis (8) Presence of IVC filter (9) Hyperlipidemia (10) Venous insufficiency Assessment and Plan Admit to Dr. Mehta 80-year-old female with history of right DVT, IVC filter, was on warfarin for 6 months. Presented to the emergency room with increased leg swelling, ultrasound positive for left leg DVT. Also with dyspnea on exertion. Acute left leg DVT, has prior history. Etiology unclear Start Lovenox 1 mg/kg subcutaneous twice a day We'll transition patient to oral therapy in the morning Patient has had prior history of DVT, was on warfarin for 6 months. She will likely need anticoagulation indefinitely. Dyspnea on exertion, with bilateral lower extremity edema, history of coronary artery disease and previous stents. Continue with serial troponin EKG 2-D echo We will follow up on results and if necessary consult Dr. Phan -May need Lasix Right forearm cellulitis, had recent skin biopsy Mupirocin -Start Bactrim PO BID Hypertension, stable Continue home medications Hyperlipidemia, stable Continue home medications Home medications have been reviewed, initiated as indicated Plan of care has been discussed with the patient and her sister, their questions answered in detail. Plan of care discussed with attending and registered nurse. Further management of the patient will be dependent on the hospital course This patient was seen by myself and Dr. Mehta, this H&P is written on his behalf (Maryanne Richard) Assessment and Plan Patient evaluation was done as above Chart was reviewed Plan of care discussed with LALITA (Ian Mehta MD) Physician Certification 2 Midnight Certification Type: Admission for Inpatient Services Order for Inpatient Services The services are ordered in accordance with Medicare regulations or non- Medicare payer requirements, as applicable. In the case of services not specified as inpatient-only, they are appropriately provided as inpatient services in accordance with the 2-midnight benchmark. Estimated LOS (days): 2 2 days is the estimated time the patient will need to remain in the hospital, assuming treatment plan goals are met and no additional complications. Post-Hospital Plan: Home Health (Maryanne Richard) Problem Qualifiers (1) Left leg DVT: Qualified Code: I82.4Z2 - Acute deep vein thrombosis (DVT) of distal vein of left lower extremity (2) CAD (coronary artery disease): Qualified Code: I25.10 - Coronary artery disease involving [place] coronary artery of [place] heart without angina pectoris (3) Hypertension: Qualified Code: I10 - Essential hypertension (4) Obesity: Qualified Code: E66.9 - Obesity, unspecified obesity severity, unspecified obesity type (5) Hyperlipidemia: Qualified Code: E78.5 - Hyperlipidemia, unspecified hyperlipidemia type Maryanne Richard Oct 15, 2016 18:55 Ian Mehta MD Oct 16, 2016 15:29
[2016-10-15] MEDS ORDERED: SODIUM CHLORIDE 0.9% FLUSH 5 ML FLUSH IVF PRN (19:00)
[2016-10-15] MEDS ORDERED: ONDANSETRON HCL 4 MG/2 ML VIAL IV PRN (19:15)
[2016-10-15] MEDS ORDERED: ACETAMINOPHEN 325 MG TAB PO PRN (19:15)
[2016-10-15 19:31] VITALS: BP 121/66; PULSE 84; RESP 18; O2SAT 97
[2016-10-15] MEDS: SULFAMETHOXAZOLE-TRIMETHOPRIM DS 800-160 MG TAB PO SCH (20:26)
[2016-10-15] MEDS: PRAVASTATIN SOD 80 MG TAB PO SCH (20:26)
[2016-10-15] MEDS: SODIUM CHLORIDE 0.9% FLUSH 5 ML FLUSH FLUSH SCH (20:27)
[2016-10-15] MEDS: MUPIROCIN 2% OINT 22 GM TUBE TOPICAL SCH (20:27)
[2016-10-15] MEDS: ENOXAPARIN SODIUM 80 MG/0.8 ML SYRINGE SQ SCH (20:27)
[2016-10-15] MEDS ORDERED: SODIUM CHLORIDE 0.9% FLUSH 5 ML FLUSH IVF SCH (21:00)
[2016-10-15 21:11] VITALS: BP 133/82; PULSE 92; RESP 18; O2SAT 100
[2016-10-15 21:12] LABS: CREATINE KINASE 65 U/L (26-192)
[2016-10-15 23:29] VITALS: PULSE 86
[2016-10-16 03:36] LABS: CREATINE KINASE 68 U/L (26-192)
[2016-10-16 05:33] LABS: AUTOMATED NEUTROPHIL # 6.4 TH/MM3 (1.8-7.7); BASOPHIL # 0.1 TH/MM3 (0-0.2); BASOPHIL % 0.8 % (0.0-2.0); EOSINOPHIL # 0.3 TH/MM3 (0-0.4); EOSINOPHIL % 2.6 % (0.0-4.0); HEMATOCRIT 30.9 % (35.0-46.0); HEMO FLAGS DIFF FINAL; LYMPH % 23.5 % (9.0-44.0); LYMPHOCYTE # 2.4 TH/MM3 (1.0-4.8); MEAN CELL VOLUME 91.4 FL (80.0-100.0); MEAN CORPUSCULAR HEMOGLOBIN 30.5 PG (27.0-34.0); MEAN CORPUSCULAR HGB CONC 33.4 % (32.0-36.0); MONO % 10.9 % (0.0-8.0); NEUT % 62.2 % (16.0-70.0); PLATELET COUNT 156 TH/MM3 (150-450); RED BLOOD COUNT 3.38 MIL/MM3 (4.00-5.30); RED CELL DISTRIBUTION WIDTH 14.8 % (11.6-17.2); WHITE BLOOD COUNT 10.2 TH/MM3 (4.0-11.0)
[2016-10-16 05:54] LABS: POTASSIUM 4.2 MEQ/L (3.5-5.1)
[2016-10-16 06:05] VITALS: BP 138/76; PULSE 78; RESP 18; TEMP 97.6; O2SAT 97
[2016-10-16 08:20] VITALS: BP 111/61; PULSE 76; RESP 18; TEMP 99.3; O2SAT 95
[2016-10-16] MEDS: ASPIRIN EC 81 MG TABEC PO SCH (08:31)
[2016-10-16] MEDS: CARVEDILOL 3.125 MG TAB PO SCH (08:31)
[2016-10-16] MEDS: ENOXAPARIN SODIUM 80 MG/0.8 ML SYRINGE SQ SCH (08:31)
[2016-10-16] MEDS: MUPIROCIN 2% OINT 22 GM TUBE TOPICAL SCH ×2 (08:32→16:59)
[2016-10-16] MEDS: SODIUM CHLORIDE 0.9% FLUSH 5 ML FLUSH FLUSH SCH ×2 (08:33→16:58)
[2016-10-16] MEDS: SULFAMETHOXAZOLE-TRIMETHOPRIM DS 800-160 MG TAB PO SCH ×2 (08:33→16:59)
[2016-10-16 08:38] VITALS: PULSE 78
--- NOTE | 2016-10-16 08:41 | HHI.PR ---
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 still the same No chest pain Or shortness of breath Did not sleep very well No fever No acute changes overnight Review of Systems Constitutional Constitutional Remarks 12 point review of systems completed, negative except as noted above Vitals/Results Vital Signs Vital Signs Date Time Temp Pulse Resp B/P Pulse Ox O2 Delivery O2 Flow Rate FiO2 10/16/16 08:20 99.3 76 18 111/61 95 10/16/16 06:05 97.6 78 18 138/76 97 10/15/16 23:29 86 10/15/16 21:11 92 18 133/82 100 Room Air 10/15/16 19:31 84 18 121/66 97 Room Air 10/15/16 18:24 82 18 141/69 95 Room Air 10/15/16 16:33 80 20 99 Room Air 10/15/16 16:30 91 20 142/74 95 Room Air 10/15/16 11:53 97.9 80 24 153/67 93 Room Air CBC/BMP: 10/16/16 0513 10/16/16 0513 Lab Results Laboratory Tests Test 10/15/16 10/15/16 10/16/16 10/16/16 15:00 20:30 02:45 05:13 White Blood Count 12.1 TH/MM3 10.2 TH/MM3 Red Blood Count 3.70 MIL/MM3 3.38 MIL/MM3 Hemoglobin 11.2 GM/DL 10.3 GM/DL Hematocrit 32.7 % 30.9 % Mean Corpuscular Volume 88.4 FL 91.4 FL Mean Corpuscular Hemoglobin 30.2 PG 30.5 PG Mean Corpuscular Hemoglobin 34.2 % 33.4 % Concent Red Cell Distribution Width 15.1 % 14.8 % Platelet Count 208 TH/MM3 156 TH/MM3 Mean Platelet Volume 7.1 FL 7.3 FL Neutrophils (%) (Auto) 68.3 % 62.2 % Lymphocytes (%) (Auto) 19.1 % 23.5 % Monocytes (%) (Auto) 10.4 % 10.9 % Eosinophils (%) (Auto) 1.6 % 2.6 % Basophils (%) (Auto) 0.6 % 0.8 % Neutrophils # (Auto) 8.2 TH/MM3 6.4 TH/MM3 Lymphocytes # (Auto) 2.3 TH/MM3 2.4 TH/MM3 Monocytes # (Auto) 1.3 TH/MM3 1.1 TH/MM3 Eosinophils # (Auto) 0.2 TH/MM3 0.3 TH/MM3 Basophils # (Auto) 0.1 TH/MM3 0.1 TH/MM3 CBC Comment DIFF FINAL DIFF FINAL Differential Comment Prothrombin Time 13.3 SEC Prothromb Time International 1.2 RATIO Ratio Activated Partial 25.6 SEC Thromboplast Time Sodium Level 135 MEQ/L 135 MEQ/L Potassium Level 4.1 MEQ/L 4.2 MEQ/L Chloride Level 101 MEQ/L 102 MEQ/L Carbon Dioxide Level 24.2 MEQ/L 25.0 MEQ/L Anion Gap 10 MEQ/L 8 MEQ/L Blood Urea Nitrogen 17 MG/DL 14 MG/DL Creatinine 0.80 MG/DL 0.72 MG/DL Estimat Glomerular Filtration 69 ML/MIN 78 ML/MIN Rate Random Glucose 98 MG/DL 91 MG/DL Calcium Level 9.2 MG/DL 8.4 MG/DL Total Bilirubin 1.3 MG/DL Aspartate Amino Transf 29 U/L (AST/SGOT) Alanine Aminotransferase 32 U/L (ALT/SGPT) Alkaline Phosphatase 105 U/L Troponin I LESS THAN 0.02 LESS THAN 0.02 LESS THAN 0.02 NG/ML NG/ML NG/ML B-Type Natriuretic Peptide 62 PG/ML Total Protein 6.9 GM/DL Albumin 3.7 GM/DL Total Creatine Kinase 65 U/L 68 U/L Physical Exam General General Appearance: Well Developed, No Acute Distress, Comfortable, Obese Eyes Eye Exam: Pupils Equal, Pupils Reactive Ears & Nose Ears & Nose Exam: Nasal Mucosa [place] Throat Throat Exam: Oral Mucosa [place] & Moist Neck Neck Exam: Neck Supple, Trachea Midline Pulmonary Resp Exam: Breath Sounds Equal, Diminished Breath Sounds Cardiology CV Exam: Regular, Good Perfusion Gastrointestinal/Abdomen GI Exam: Soft, Non-Tender, Bowel Sounds Present, Non-Distended Musculoskeletal MS Exam: Joints Intact Integumentary Skin Exam: Warm, Dry Extremeties Extremities Exam: Pedal Pulses Palpable, Moderate Edema, Pitting Edema Neurologic Neuro Exam: Alert, Awake, Oriented, Speech Clear, Moving All Extremities, No Focal Deficits Psychiatric Psych Exam: Appropriate Responses VTE Prophylaxis VTE Prophylaxis Meds: Lovenox Assessment/Plan Problem List: (1) SOB (shortness of breath) on exertion (2) Left leg DVT (3) Hx of deep venous thrombosis (4) Presence of IVC filter (5) Bilateral lower extremity edema (6) Obesity (7) Hypertension (8) Venous insufficiency (9) Hyperlipidemia (10) CAD (coronary artery disease) Assessment/Plan 80-year-old female with history of right DVT, IVC filter, was on warfarin for 6 months. Presented to the emergency room with increased leg swelling, ultrasound positive for left leg DVT. Also with dyspnea on exertion. Acute left leg DVT, has prior history. Etiology unclear Continue with Lovenox 1 mg/kg subcutaneous twice a day We'll transition patient to oral therapy-we will ask case management to find out from patient's insurance the costal Xarelto versus Eliquis. She doesn't want to use warfarin Patient has had prior history of DVT, was on warfarin for 6 months. She will likely need anticoagulation indefinitely. Dyspnea on exertion, with bilateral lower extremity edema, history of coronary artery disease and previous stents. Serial troponin negative, no evidence of ACS EKG reviewed, sinus rhythm, no ectopy 2-D echo pending We will follow up on results and if necessary consult Dr. Phan -We will give Lasix 20 mg IV 1 Right forearm cellulitis, had recent skin biopsy-improving Continue Mupirocin -Continue Bactrim PO BID Hypertension, stable Continue home medications Hyperlipidemia, stable Continue home medications Pt. stable, continue Lovenox Possible discharge tomorrow We will wait to find out on the cost of anticoagulation and will transition to either Xarelto or Eliquis in the morning D/W RN D/W Dr. Mehta D/W pt. D/W CM This patient was seen by myself and Dr. Mehta, this note is written on his behalf Problem Qualifiers (1) Left leg DVT: Qualified Code: I82.4Z2 - Acute deep vein thrombosis (DVT) of distal vein of left lower extremity (2) Obesity: Qualified Code: E66.9 - Obesity, unspecified obesity severity, unspecified obesity type (3) Hypertension: Qualified Code: I10 - Essential hypertension (4) Hyperlipidemia: Qualified Code: E78.5 - Hyperlipidemia, unspecified hyperlipidemia type (5) CAD (coronary artery disease): Qualified Code: I25.10 - Coronary artery disease involving [place] coronary artery of [place] heart without angina pectoris Maryanne Richard Oct 16, 2016 08:41
[2016-10-16] MEDS ORDERED: FUROSEMIDE 20 MG/2 ML VIAL IV PUSH ONE (09:00)
[2016-10-16 11:28] VITALS: BP 114/58; PULSE 70; RESP 18; O2SAT 96
[2016-10-16 14:36] VITALS: BP 120/56; PULSE 77; RESP 18; O2SAT 96
[2016-10-16] MEDS ORDERED: XARE15TA PO (16:43)
[2016-10-16] MEDS ORDERED: XARE20TA PO (16:43)
--- NOTE | 2016-10-16 16:44 | HHI.DCPOC ---
Discharge Care Plan Diagnosis: (1) CAD (coronary artery disease) (2) Hyperlipidemia (3) Venous insufficiency (4) Hypertension (5) Obesity (6) SOB (shortness of breath) on exertion (7) Left leg DVT (8) Hx of deep venous thrombosis (9) Presence of IVC filter (10) Bilateral lower extremity edema Your Health Problems Are: Swelling Leg Swelling Goals to Promote Your Health * To prevent worsening of your condition and complications * To maintain your health at the optimal level Directions to Meet Your Goals Take your medications as prescribed Follow your dietary instruction Follow activity as directed Keep your appointments as scheduled Take your immunizations and boosters as scheduled If your symptoms worsen call your PCP, if no PCP go to Urgent Care Center or Emergency Room Smoking is Dangerous to Your Health. Avoid second hand smoke Call the 24-hour hour crisis hotline for domestic abuse at Maryanne Richard Oct 16, 2016 16:44
--- NOTE | 2016-10-16 17:06 | EKG ---
Date Performed: 10/15/2016 Time Performed: 23:38:54 PTAGE: 80 years EKG: Sinus rhythm NORMAL ECG PREVIOUS TRACING : 09/28/2016 12.20 DOCTOR: Germain Phan Interpretating Date/Time 10/16/2016 17:02:21
[2016-10-16] MEDS ORDERED: AMLO5TAB2 PO (17:09)
[2016-10-16] MEDS ORDERED: TRAZ50TA12 PO (17:09)
[2016-10-16] MEDS ORDERED: TIMO0.5S30 EACH EYE (17:09)
--- NOTE | 2016-10-16 19:02 | EC ---
Study Study Date:10/16/2016 STUDY CONCLUSIONS SUMMARY - Left ventricle: The cavity size was normal. Systolic function was normal. The estimated ejection fraction was in the range of 55% to 60%. Although no diagnostic regional wall motion abnormality was identified, this possibility cannot be completely excluded on the basis of this study. Doppler parameters are consistent with abnormal left ventricular relaxation (grade 1 diastolic dysfunction). - Aortic valve: Mild regurgitation. - Mitral valve: Moderately calcified annulus. - Tricuspid valve: Mild regurgitation. - Pulmonary arteries: PA peak pressure: 38mm Hg (S). If LV function is below 40, please consider prescribing an ACEI or ARB or document rationale for non-use. PROCEDURE DATA STUDY STATUS: Elective. Procedure: Transthoracic echocardiography. Image quality was good. Scanning was performed from the parasternal, apical, and subcostal acoustic windows. Study completion: The patient tolerated the procedure well. Transthoracic echocardiography. M-mode, complete 2D, complete spectral Doppler, and color Doppler. Patient status: Inpatient. CARDIAC ANATOMY LEFT VENTRICLE: The cavity size was normal. Systolic function was normal. The estimated ejection fraction was in the range of 55% to 60%. Although no diagnostic regional wall motion abnormality was identified, this possibility cannot be completely excluded on the basis of this study. Doppler parameters are consistent with abnormal left ventricular relaxation (grade 1 diastolic dysfunction). AORTIC VALVE: The valve appears to be grossly normal. Doppler: There was no stenosis. Mild regurgitation. Mean gradient: 7mm Hg (S). Peak gradient: 16mm Hg (S). MITRAL VALVE: Moderately calcified annulus. Doppler: There was no evidence for stenosis. Trace to mild regurgitation. Mean gradient: 3mm Hg (D). Peak gradient: 10mm Hg (D). RIGHT VENTRICLE: The cavity size was normal. Systolic function was normal. PULMONIC VALVE: Not well visualized. Doppler: There was no evidence for stenosis. No significant regurgitation. TRICUSPID VALVE: The valve appears to be grossly normal. Doppler: There was no evidence for stenosis. Mild regurgitation. PERICARDIUM: There was no pericardial effusion. BASIC MEASUREMENTS ADULT NORMAL Left ventricle LV internal dimension, ED, chordal level, 43.1 mm 43-52 PLAX LV internal dimension, ES, chordal level, 33.6 mm 23-38 PLAX Fractional shortening, chordal level, PLAX *22 % >29 LV posterior wall thickness, ED 8.56 mm IVS/LVPW ratio, ED 0.93 <1.3 Ventricular septum Septal thickness, ED 7.98 mm Aortic valve Leaflet separation 18 mm 15-26 Left atrium Anterior-posterior dimension 33 mm Right ventricle RV internal dimension, ED, PLAX 20.3 mm 19-38 BASIC MEASUREMENTS ADULT NORMAL Aortic valve Leaflet separation 18 mm 15-26 Aorta Root diameter, ED 29 mm 20-37 DOPPLER MEASUREMENTS ADULT NORMAL Main pulmonary artery Pressure, S *38 mm Hg =30 Aortic valve Peak velocity, S 200 cm/s Mean velocity, S 117 cm/s VTI, S 52.3 cm Mean gradient, S 7 mm Hg Peak gradient, S 16 mm Hg Mitral valve Peak E-wave velocity 103 cm/s Peak A-wave velocity 128 cm/s Mean velocity, D 76.4 cm/s Mean gradient, D 3 mm Hg Peak gradient, D 10 mm Hg Peak E/A ratio 0.8 Tricuspid valve Regurgitant peak velocity 288 cm/s Peak RV-RA gradient, S 33 mm Hg Maximal regurgitant velocity 288 cm/s Systemic veins Estimated CVP 5 mm Hg Right ventricle RV pressure, S *38 mm Hg <30 LEGEND: Mean values are shown as u=mean value. Asterisk (*) cueva values outside specified normal range. Prepared and signed by Roel Leone [id number]
[2016-10-16 20:29] VITALS: BP 117/63; PULSE 76; RESP 18; TEMP 98.8; O2SAT 97
[2016-10-16] MEDS: PRAVASTATIN SOD 80 MG TAB PO SCH (21:06)
[2016-10-16] MEDS: RIVAROXABAN 15 MG TAB PO SCH (21:07)
[2016-10-17] VITALS: BP 120/68; PULSE 74; RESP 18; TEMP 98.9; O2SAT 97
[2016-10-17 02:00] VITALS: PULSE 74
[2016-10-17 07:04] VITALS: PULSE 74
--- NOTE | 2016-10-17 07:58 | HHI.PR ---
Subjective Subjective Remarks alert slept well mild lt. leg pain No headache no chest pain exertional SOB (Hanny Hernandez) Review of Systems Constitutional Constitutional Remarks 10 point ROS done. Positives include exertional SOB, lt leg pain and edema, . All other systems negative, or unremarkable. (Hanny Hernandez) Pulmonary Respiratory: Shortness of Breath (exertional) (Hanny Hernandez) Musculoskeletal MS: Discomfort/Pain (lt. leg) (Hanny Hernandez) Psychiatric Psychiatric: Normal Mood (Hanny Hernandez) Vitals/Results Vital Signs Vital Signs Date Time Temp Pulse Resp B/P Pulse Ox O2 Delivery O2 Flow Rate FiO2 10/17/16 02:00 74 10/17/16 00:00 98.9 74 18 120/68 97 10/16/16 20:29 98.8 76 18 117/63 97 10/16/16 14:36 77 18 120/56 96 10/16/16 11:28 70 18 114/58 96 10/16/16 08:20 99.3 76 18 111/61 95 (Hanny Hernandez) CBC/BMP: 10/16/16 0513 10/16/16 0513 Imaging Remarks Last Impressions CT Angiography 10/15/16 1643 Signed Impressions: Service Date/Time: Saturday, October 15, 2016 17:05 - CONCLUSION: 1. There is no evidence for central pulmonary emboli. 2. Coronary artery calcifications. 3. Benign-appearing calcifications in the left breast. 4. There are no suspicious lung lesions. Tim Denton MD FACR Chest X-Ray 10/15/16 1450 Signed Impressions: Service Date/Time: Saturday, October 15, 2016 15:12 - CONCLUSION: No acute disease. Tim Denton MD FACR Lower Extremity Ultrasound 10/15/16 0000 Signed Impressions: Service Date/Time: Saturday, October 15, 2016 15:35 - CONCLUSION: 1. Occlusive deep venous thrombosis of the left lower extremity from the iliac vein to the calf veins. 2. No deep venous thrombosis within the right lower extremity. Warren Chavez MD Current Medications Active Medications Aspirin (Ecotrin Ec) 81 mg DAILY PO Last administered on 10/16/16 08:31; Admin Dose 81 MG; Start 10/16/16 at 09:00 Carvedilol (Coreg) 3.125 mg DAILY PO Last administered on 10/16/16 08:31; Admin Dose 3.125 MG; Start 10/16/16 at 09:00 Furosemide (Lasix Inj) 20 mg ONCE ONCE IV PUSH Last administered on 10/16/16 09 :39; Admin Dose 20 MG; Start 10/16/16 at 09:00; Stop 10/16/16 at 09:01; Status DC Rivaroxaban (Xarelto) 15 mg BID PO Last administered on 10/16/16 21:07; Admin Dose 15 MG; Start 10/16/16 at 21:00 (Hanny Hernadnez) Physical Exam General General Appearance: Well Developed, No Acute Distress, Comfortable, Obese ( Hanny HernandezP) Eyes Eye Exam: Pupils Equal, Pupils Reactive, Sclera White (Hanny HernandezP) Ears & Nose Ears & Nose Exam: Nasal Mucosa [place] (Hanny HernandezP) Throat Throat Exam: Oral Mucosa [place] & Moist (Hanny HernandezP) Neck Neck Exam: Neck Supple, Trachea Midline (Hanny HernandezP) Pulmonary Resp Exam: Breath Sounds Equal, Diminished Breath Sounds (rt. 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[employer]) Neurologic Neuro Exam: Alert, Awake, Oriented, Speech Clear, Moving All Extremities, No Focal Deficits (Hanny HernandezP) Psychiatric Psych Exam: Appropriate Responses (Hanny HernandezP) VTE Prophylaxis VTE Prophylaxis Meds: Lovenox VTE Remarks xarelto (Hanny Hernandez) Assessment/Plan Problem List: (1) SOB (shortness of breath) on exertion (2) Left leg DVT (3) Hx of deep venous thrombosis (4) Presence of IVC filter (5) Bilateral lower extremity edema (6) Obesity (7) Hypertension (8) Venous insufficiency (9) Hyperlipidemia (10) CAD (coronary artery disease) Assessment/Plan 80-year-old female with history of right DVT, IVC filter, was on warfarin for 6 months. Presented to the emergency room with increased leg swelling, ultrasound positive for left leg DVT. Also with dyspnea on exertion. Acute left leg DVT, has prior history. Etiology unclear Placed on xarelto last pm. Dyspnea on exertion, with bilateral lower extremity edema, history of coronary artery disease and previous stents. Serial troponin negative, no evidence of ACS 2-D echo, EF 55-60%, mild tricuspid, and aortic regurgitation, Right forearm cellulitis, had recent skin biopsy-improving Continue Mupirocin -Continue Bactrim PO BID Hypertension, stable Hyperlipidemia, stable Pending probable discharge today. D/W Dr. Mehta D/W pt. This patient was seen by myself and Dr. 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 rn dc home today (Ian Mehta MD) Problem Qualifiers (1) Left leg DVT: Qualified Code: I82.4Z2 - Acute deep vein thrombosis (DVT) of distal vein of left lower extremity (2) Obesity: Qualified Code: E66.9 - Obesity, unspecified obesity severity, unspecified obesity type (3) Hypertension: Qualified Code: I10 - Essential hypertension (4) Hyperlipidemia: Qualified Code: E78.5 - Hyperlipidemia, unspecified hyperlipidemia type (5) CAD (coronary artery disease): Qualified Code: I25.10 - Coronary artery disease involving [place] coronary artery of [place] heart without angina pectoris Hanny Hernandez Oct 17, 2016 07:58 Ian Mehta MD Oct 17, 2016 08:47
[2016-10-17 08:29] VITALS: BP 108/78; PULSE 70; RESP 17; O2SAT 97
--- NOTE | 2016-10-17 08:51 | HHI.DS ---
Discharge Summary Admission Date Oct 15, 2016 at 17:20 Admitting Diagnosis DVT/SOB/EDEMA (1) Left leg DVT Diagnosis: Principal (2) Bilateral lower extremity edema Diagnosis: Principal (3) SOB (shortness of breath) on exertion Diagnosis: Principal (4) CAD (coronary artery disease) Diagnosis: Principal (5) Hypertension Diagnosis: Principal (6) Obesity Diagnosis: Principal (7) Hx of deep venous thrombosis Diagnosis: Principal (8) Presence of IVC filter Diagnosis: Principal (9) Hyperlipidemia Diagnosis: Principal (10) Venous insufficiency Diagnosis: Principal Brief History This is a pleasant 80-year-old female with past medical history of CAD and stents, hypertension, hyperlipidemia, osteoarthritis, previous DVT to the right leg status post IVC filter. Patient presented to the emergency room complaining of increased bilateral lower extremity swelling left greater than right with pain to the left leg with ambulation. Patient indicated that she has noted increased swelling to both legs for the last couple of weeks, in the last couple days she noted that the left leg was bigger and more tender to the calf area. She had more pain with ambulation. She's also noticed some dyspnea with exertion, no chest pain, no fever, no chills. She does have some chronic venous insufficiency, but her legs have never had any excessive swelling such as this. She does have a history of DVT to the right leg after she had right knee replacement. She was on warfarin for 6 months and had IVC filter placed. Patient indicates that a couple of weeks ago she stayed up playing cards and was sitting for several hours. Denies any malignancy, n recent history of extensive travel. Denies any blood clotting disorders. In the emergency room, patient was evaluated and laboratory workup was completed which was essentially unremarkable. Troponin was negative. BNP was 62. Ultrasound of the left leg showed extensive DVT from the iliac vein to the calf veins. No DVT to the right leg. CT of the chest was negative for pulmonary emboli. Chest x-ray did not reveal any acute findings.Pt was admitted started on lovenox than xeralto. Monitered in house. labs reviewed and monitored. 2 d echo done. as pt is overall stable and better condition plan to dc home to follow pcp CBC/BMP: 10/16/16 0513 10/16/16 0513 Significant Findings Laboratory Tests Test 2/6/17 2/6/17 2/7/17 2/7/17 15:00 20:30 02:45 05:13 White Blood Count 12.1 TH/MM3 (4.0-11.0) Red Blood Count 3.70 MIL/MM3 3.38 MIL/MM3 (4.00-5.30) (4.00-5.30) Hemoglobin 11.2 GM/DL 10.3 GM/DL (11.6-15.3) (11.6-15.3) Hematocrit 32.7 % 30.9 % (35.0-46.0) (35.0-46.0) Monocytes (%) (Auto) 10.4 % 10.9 % (0.0-8.0) (0.0-8.0) Neutrophils # (Auto) 8.2 TH/MM3 (1.8-7.7) Monocytes # (Auto) 1.3 TH/MM3 1.1 TH/MM3 (0-0.9) (0-0.9) Prothrombin Time 13.3 SEC (9.8-11.6) Sodium Level 135 MEQ/L 135 MEQ/L (136-145) (136-145) Estimat Glomerular Filtration 69 ML/MIN (>89) 78 ML/MIN (>89) Rate Total Bilirubin 1.3 MG/DL (0.2-1.0) Troponin I LESS THAN 0.02 LESS THAN 0.02 LESS THAN 0.02 NG/ML NG/ML NG/ML (0.02-0.05) (0.02-0.05) (0.02-0.05) Calcium Level 8.4 MG/DL (8.5-10.1) Pt Condition on Discharge: Good Discharge Disposition: Discharge Home Discharge Instructions DIET: Follow Instructions for: Heart Healthy Diet Activities you can perform: Weight Bearing as [place] Follow up Referrals: PCP Follow-up New Medications: Rivaroxaban (Xarelto) 20 Mg Tab 20 MG PO DAILY Start on November 06, 2016. Blood Clot Prevention #30 Ref 1 TAB Rivaroxaban (Xarelto) 15 Mg Tab 15 MG PO BID blood clot #40 Ref 0 TAB Continued Medications: Aspirin (Aspirin) 81 Mg Tabdr 81 MG PO DAILY TAB Carvedilol (Coreg) 3.125 Mg Tab 3.125 MG PO DAILY #60 Ref 0 TAB Isosorbide Dinitrate (Isosorbide Dinitrate) 10 Mg Tab 5 MG PO BID #60 Ref 0 TAB Mupirocin Topical (Mupirocin Topical) 2 % Oint 1 APPLIC TOPICAL BID Mgmt Bacterial Infection #1 Ref 0 TUBE Simvastatin (Simvastatin) 40 Mg Tab 40 MG PO HS Cholesterol Management #30 Ref 0 TAB Sulfamethoxazole-Trimethoprim (Bactrim DS) 800-160 Mg Tab 1 TAB PO BID Infection Ref 0 TAB Ian Mehta MD Oct 17, 2016 08:50
[2016-10-17] MEDS: SULFAMETHOXAZOLE-TRIMETHOPRIM DS 800-160 MG TAB PO SCH (09:30)
[2016-10-17] MEDS: SODIUM CHLORIDE 0.9% FLUSH 5 ML FLUSH FLUSH SCH (09:30)
[2016-10-17] MEDS: CARVEDILOL 3.125 MG TAB PO SCH (09:30)
[2016-10-17] MEDS: MUPIROCIN 2% OINT 22 GM TUBE TOPICAL SCH (09:31)
[2016-10-17] MEDS: ASPIRIN EC 81 MG TABEC PO SCH (09:31)
[2016-10-17] MEDS: RIVAROXABAN 15 MG TAB PO SCH (09:31)
== END 2016-10-17 16:27 | disposition home or self-care (01) | DRG 300 ==
LOC: NEPA 11:48 → NEDA 17:20 → NEPHCDU 21:43 → NEDA 10-16 00:43
PROVIDERS: ADMIT Specialist; ATTEND Specialist
DX: I82.422 Acute embolism and thrombosis of left iliac vein (principal); L03.113 Cellulitis of right upper limb; I08.2 Rheumatic disorders of both aortic and tricuspid valves; I10 Essential (primary) hypertension; E78.5 Hyperlipidemia, unspecified; I25.10 Atherosclerotic heart disease of native coronary artery without angina pectoris; E78.00 Pure hypercholesterolemia, unspecified; H40.9 Unspecified glaucoma; R60.0 Localized edema; R06.02 Shortness of breath; E66.9 Obesity, unspecified; I87.2 Venous insufficiency (chronic) (peripheral); Z96.653 Presence of artificial knee joint, bilateral; Z95.5 Presence of coronary angioplasty implant and graft; Z86.718 Personal history of other venous thrombosis and embolism; Z85.828 Personal history of other malignant neoplasm of skin; Z82.3 Family history of stroke; Z82.49 Family history of ischemic heart disease and other diseases of the circulatory system
CPT/HCPCS: 71010; 71275; 80048; 80053; 82550; 83880; 84484; 85025; 85610; 85730; 93005; 93306; 93970; J1650; J1940; Q9967

== ENCOUNTER 2016-12-31 17:16 | Emergency (ER) | payer MEDICARE ==
[~2016-12-31] VITALS: Ht 149.9 cm; Wt 79.0 kg
[~2016-12-31 17:16] MED LIST changes: +AMLO5TAB2 PO; +BACT800T5 PO; -MACR100C2 PO; +MUPI2OIN TOPICAL; +TIMO0.5S30 EACH EYE; +TRAZ50TA12 PO; +XARE15TA PO; +XARE20TA PO
[2016-12-31 17:18] VITALS: BP 150/74; PULSE 82; RESP 16; TEMP 97.7; O2SAT 98
--- NOTE | 2016-12-31 17:33 | PD ---
Physical Exam Time Seen by Provider: 17:31 Narrative 81yo F c/o laceration to Left arm from umbrella. PCP sent for stitches. Patient stable. Patient seen in triage. Awaiting bed placement. Data Data Last Documented VS Vital Signs Date Time Temp Pulse Resp B/P Pulse Ox O2 Delivery O2 Flow Rate FiO2 12/31/16 17:18 97.7 82 16 150/74 98 MDM Supervised Visit with MERVIN: Jaqueline Mckay Dec 31, 2016 17:33
[2016-12-31] MEDS ORDERED: XARE15TA PO (17:59)
[2016-12-31] MEDS ORDERED: TYLETAB34 PO (19:02)
[2016-12-31] MEDS ORDERED: CEPH-460 PO (19:05)
--- NOTE | 2016-12-31 19:05 | PD ---
HPI Chief Complaint: Laceration/Skin Injury Time Seen by Provider: 18:00 Travel History International Travel<30 days: No Contact w/Intl Traveler<30days: No Traveled to known affect area: No History of Present Illness HPI Patient is 81-year-old female presented to the emergency department for evaluation of a laceration to his left forearm that she sustained when an umbrella fell over and hit her in the arm. Patient denies any head injury or loss of consciousness. She went to her primary doctor who up that her tetanus vaccine but had her come to the emergency department to have the wound repaired. She denies any other complaints at this time. PFSH Past Medical History Hx Anticoagulant Therapy: Yes (XARELTO) Arthritis: Yes Asthma: No Blood Disorders: No Heart Rhythm Problems: No Cancer: Yes (skin) Cardiovascular Problems: Yes High Cholesterol: Yes Chest Pain: No Congestive Heart Failure: Yes COPD: No Coronary Artery Disease: Yes Diminished Hearing: No Deep Vein Thrombosis: Yes Endocrine: No Glaucoma: Yes Genitourinary: No Hypertension: Yes Immune Disorder: No Musculoskeletal: Yes Neurologic: No Psychiatric: No Reproductive: No Respiratory: No Myocardial Infarction: No Sleep Apnea: No Triglycerides - High: Yes ?: Not Past Surgical History Abdominal Surgery: Yes (HERNIA) AICD: No Arteriovenous Shunt: No Body Medical Devices: CARDIAC STENT Cardiac Surgery: Yes (CARDIAC CATH STENT) Coronary Stent: Yes (2 x) Ear Surgery: No Endocrine Surgery: No Eye Surgery: No Genitourinary Surgery: No Gynecologic Surgery: No Insulin Pump: No Joint Replacement: Yes (bilat ) Oral Surgery: No Pacemaker: No Thoracic Surgery: No Other Surgery: Yes Social History Alcohol Use: No Tobacco Use: No Substance Use: No Allergies-Medications (Allergen,Severity, Reaction): Coded Allergies: Bacitracin (Verified Allergy, Severe, REDNESS, 12/31/16) Reported Meds & Prescriptions Reported Meds & Active Scripts Active Keflex (Cephalexin) 500 Mg Cap 500 Mg PO Q12H 5 Days Tylenol-Codeine #3 (Acetaminophen-Codeine) 300-30 mg Tab 1 Tab PO Q4H PRN Reported Xarelto (Rivaroxaban) 15 Mg Tab 15 Mg PO DAILY Timolol Opth Drops 0.5 % Soln 1 Drop EACH EYE BID Amlodipine (Amlodipine Besylate) 5 Mg Tab 5 Mg PO DAILY Trazodone (Trazodone HCl) 50 Mg Tab 50 Mg PO DAILY Mupirocin Topical (Mupirocin) 2 % Oint 1 Applic TOPICAL BID Simvastatin 40 Mg Tab 40 Mg PO HS Isosorbide Dinitrate 10 Mg Tab 5 Mg PO BID Review of Systems Except as stated in HPI: all other systems reviewed are Neg Skin: Positive Other (laceration) Physical Exam Narrative GENERAL: Well-nourished, well-developed patient. SKIN: Focused skin assessment warm/dry. 3 centimeter superficial skin tear to the left forearm just distal to the elbow. No active bleeding noted. Positive radial pulse. HEAD: Normocephalic. EYES: No scleral icterus. No injection or drainage. NECK: Supple, trachea midline. No JVD or lymphadenopathy. CARDIOVASCULAR: Regular rate and rhythm without murmurs, gallops, or rubs. RESPIRATORY: Breath sounds equal bilaterally. No accessory muscle use. GASTROINTESTINAL: Abdomen soft, non-tender, nondistended. MUSCULOSKELETAL: No cyanosis, or edema. BACK: Nontender without obvious deformity. No CVA tenderness. Data Data Last Documented VS Vital Signs Date Time Temp Pulse Resp B/P Pulse Ox O2 Delivery O2 Flow Rate FiO2 12/31/16 17:18 97.7 82 16 150/74 98 [facility] Medical Decision Making Medical Screen Exam Complete: Yes Emergency Medical Condition: Yes Interpretation(s) Vital Signs Date Time Temp Pulse Resp B/P Pulse Ox O2 Delivery O2 Flow Rate FiO2 12/31/16 17:18 97.7 82 16 150/74 98 Differential Diagnosis Skin avulsion versus laceration versus abrasion versus other Narrative Course Patient is a 81-year-old female presenting to the emergency department for evaluation of a skin tear/laceration to her left forearm that she sustained at her pool this afternoon at approximately 3:30. Patient was seen and evaluated by her primary doctor who advised to come to the ER for laceration repair. Please see procedure performed laceration repair. Patient is requesting antibiotics to prevent an infection, discussed with her that she was low risk for infection and antibiotics carry their own side effects. She persisted, she' ll be provided with a prescription for Keflex. She is encouraged to return to emergency department for any new or worsening symptoms. She was advised that sutures will need to be removed in 7-10 days, this can be done in the emergency department with her primary doctor. Patient verbalized understanding of these instructions. Patient stable for discharge. Procedures Procedure Narrative LACERATION LOCATION: Left forearm LENGTH: 3 cm NUMBER OF STITCHES/JACK: 6 stitches REPAIR: The area of the laceration was prepped with Betadine and sterilely draped. The laceration was infiltrated with percent lidocaine. The wound was copiously irrigated and explored without evidence of foreign body, tendon injury or neurovascular injury. The wound was closed using 5-0 Ethilon. This was a 1 layer repair. A sterile dressing was applied. The patient was advised to keep the dressing clean and dry. Patient tolerated the procedure well. Diagnosis Primary Impression: Laceration of arm Qualified Code: S41.112A - Laceration of arm, left, initial encounter Referrals: Primary Care Physician 1 week To have stitches removed Patient Instructions: Care For Your Stitches (ED), General Instructions Departure Forms: Tests/Procedures Additional Instructions: Follow-up with her primary doctor Keep stitches clean and dry, may shower but do not swim in a pool or ocean until stitches are healed Take antibiotics as directed Do not drive or operate machinery while taking narcotic pain medication Return to emergency department for any new or worsening symptoms Med/Other Pt SpecificInfo: Prescription(s) given Scripts Cephalexin (Keflex)500 Mg Ptg451 Mg PO Q12H 5 Days Ref 0 Prov:Shavon Thomas 12/31/16 Acetaminophen-Codeine (Tylenol-Codeine #3)300-30 mg Tab1 Tab PO Q4H PRN (PAIN) # 10 TAB Ref 0 Prov:Deepti Paulino DO 12/31/16 Disposition: 01 DISCHARGE HOME Condition: Stable Shavon Thomas Dec 31, 2016 19:05
== END 2016-12-31 19:40 | disposition home or self-care (01) ==
LOC: NEPD 17:16
DX: S51.812A Laceration without foreign body of left forearm, initial encounter (principal); I10 Essential (primary) hypertension; E78.00 Pure hypercholesterolemia, unspecified; I50.9 Heart failure, unspecified; H40.9 Unspecified glaucoma; I25.10 Atherosclerotic heart disease of native coronary artery without angina pectoris; Z86.718 Personal history of other venous thrombosis and embolism; Z79.01 Long term (current) use of anticoagulants; W22.8XXA Striking against or struck by other objects, initial encounter; Y93.9 Activity, unspecified; Y92.9 Unspecified place or not applicable; Y99.9 Unspecified external cause status
CPT/HCPCS: 12002